=== PATIENT | male | born 1995 | race Two or more races ===

== ENCOUNTER 2023-08-24 09:25 | Emergency (ER) | payer OTHER ==
[~2023-08-24] VITALS: Ht 177.8 cm; Wt 56.2 kg
[2023-08-24 09:49] VITALS: BP 102/58; TEMP 98.2; O2SAT 97
[2023-08-24] MEDS ORDERED: IBUP-1955 PO (11:33)
== END 2023-08-24 12:37 ==
LOC: ER 09:25
DX: S42.452A Displaced fracture of lateral condyle of left humerus, initial encounter for closed fracture (principal); X58.XXXA Exposure to other specified factors, initial encounter; Y93.89 Activity, other specified; Y92.89 Other specified places as the place of occurrence of the external cause; Y99.8 Other external cause status
CPT/HCPCS: 73080-TC